=== PATIENT | female | born 1980 | race Caucasian/White ===

== ENCOUNTER 2018-01-20 02:12 | Inpatient (IN) | payer BC ==
[~2018-01-20] VITALS: Ht 172.7 cm; Wt 60.9 kg
[2018-01-20] MEDS ORDERED: OXYTOCIN 30U/ 0.9% NaCL 500ML 500 ML IV ONE (02:14)
[2018-01-20] MEDS: D5%-LACTATED RINGERS 1,000 ML IV SCH ×2 (02:14→10:14)
[2018-01-20] MEDS: LACTATED RINGERS 1,000 ML IV SCH ×2 (02:14→10:14)
[2018-01-20 02:15] VITALS: BP 126/74
[2018-01-20] MEDS ORDERED: FENTANYL PF 100 MCG/2ML ONE (02:19)
[2018-01-20] MEDS ORDERED: NEWBORN KIT ONE (02:20)
[2018-01-20] MEDS ORDERED: LIDOCAINE/PF 1%, 30ML ONE (02:20)
[2018-01-20] MEDS ORDERED: OXYTOCIN 30U/ 0.9% NaCL 500ML 500 ML ONE ×2 (02:20→03:00)
[2018-01-20] MEDS ORDERED: MISOPROSTOL 200 MCG TABLET ONE (02:20)
[2018-01-20] MEDS ORDERED: FENTANYL PF 100 MCG/2ML IVPush PRN (02:30)
[2018-01-20] MEDS ORDERED: CALCIUM CARBONATE 500 MG TAB.CHEW PO PRN ×2 (02:30→03:00)
[2018-01-20] MEDS ORDERED: TERBUTALINE 1 MG/ML, 1ML SQ PRN (02:30)
[2018-01-20] MEDS ORDERED: ALUMINUM/MAG/SIMETHICONE 30 ML UDC PO PRN (02:30)
[2018-01-20] MEDS ORDERED: TERBUTALINE 1 MG/ML, 1ML IVPush PRN ×2 (02:30)
[2018-01-20] MEDS ORDERED: FENTANYL PF 100 MCG/2ML IV PRN (02:30)
[2018-01-20] MEDS ORDERED: ONDANSETRON 2MG/ML, 2ML IVPush PRN (02:30)
[2018-01-20] MEDS: OXYTOCIN 30U/ 0.9% NaCL 500ML 500 ML IV SCH ×3 (02:41→22:55)
[2018-01-20] MEDS ORDERED: MAGNESIUM HYDROXIDE 8%, 30ML UDC PO PRN (03:00)
[2018-01-20] MEDS ORDERED: DIPH,PERTUSS(ACELL),TET VAC/PF NC IM-VACC PRN (03:00)
[2018-01-20] MEDS ORDERED: OXYcodone/APAP 5/325MG TABLET PO PRN ×2 (03:00)
[2018-01-20] MEDS ORDERED: MEASLES,MUMPS&RUBELLA VACC/PF 0.5 ML SQ PRN (03:00)
[2018-01-20] MEDS ORDERED: ONDANSETRON 2MG/ML, 2ML IV PRN (03:00)
[2018-01-20] MEDS ORDERED: MISOPROSTOL 200 MCG TABLET PR PRN (03:00)
[2018-01-20] MEDS ORDERED: ACETAMINOPHEN 325 MG TABLET PO PRN ×2 (03:00)
[2018-01-20 04:42] LABS: BASOPHILS # (AUTO) 0.01 x10^3/uL (0-0.1); BASOPHILS % (AUTO) 0 % (0-1); EOSINOPHILS # (AUTO) 0.01 x10^3/uL (0-0.4); EOSINOPHILS % (AUTO) 0 % (1-7); LYMPHOCYTES # (AUTO) 1.17 x10^3/uL (1-3.4); LYMPHOCYTES % (AUTO) 7 % (22-44); MD NO; MEAN CORPUSCULAR HEMOGLOBIN 33.8 pg (27.0-34.8); MEAN CORPUSCULAR HGB CONC 34.3 g/dL (32.4-35.8); MEAN CORPUSCULAR VOLUME 98.5 fL (80-100); MEAN PLATELET VOLUME 10.1 fL (7.4-10.4); MONOCYTES # (AUTO) 0.52 x10^3/uL (0.2-0.8); MONOCYTES % (AUTO) 3 % (2-9); NEUTROPHILS # (AUTO) 15.93 x10^3/uL (1.8-6.8); NEUTROPHILS % (AUTO) 90 % (42-75); PLATELET COUNT 145 x10^3/uL (130-400); RED BLOOD COUNT 3.81 x10^6/uL (3.82-5.3); RED CELL DISTRIBUTION WIDTH 12.2 % (9.6-15.2)
[2018-01-20 04:50] VITALS: BP 93/56
[2018-01-20 07:45] VITALS: BP 99/59
[2018-01-20] MEDS: DOCUSATE 100 MG CAPSULE PO PRN ×2 (08:28→20:22)
[2018-01-20] MEDS: PRENATAL VIT/IRON/FA 1 EACH TABLET PO SCH (08:28)
[2018-01-20 10:54] LABS: BASOPHILS # (AUTO) 0.05 x10^3/uL (0-0.1); BASOPHILS % (AUTO) 0 % (0-1); EOSINOPHILS # (AUTO) 0.02 x10^3/uL (0-0.4); EOSINOPHILS % (AUTO) 0 % (1-7); LYMPHOCYTES % (AUTO) 13 % (22-44); MD NO; MEAN CORPUSCULAR HEMOGLOBIN 34.5 pg (27.0-34.8); MEAN CORPUSCULAR HGB CONC 34.9 g/dL (32.4-35.8); MEAN CORPUSCULAR VOLUME 98.8 fL (80-100); MEAN PLATELET VOLUME 9.7 fL (7.4-10.4); MONOCYTES # (AUTO) 0.69 x10^3/uL (0.2-0.8); MONOCYTES % (AUTO) 5 % (2-9); NEUTROPHILS # (AUTO) 11.75 x10^3/uL (1.8-6.8); NEUTROPHILS % (AUTO) 82 % (42-75); PLATELET COUNT 143 x10^3/uL (130-400); RED BLOOD COUNT 3.59 x10^6/uL (3.82-5.3); RED CELL DISTRIBUTION WIDTH 12.6 % (9.6-15.2)
[2018-01-20 12:00] VITALS: BP 93/62
[2018-01-20] MEDS: IBUPROFEN 600 MG TABLET PO PRN ×2 (12:35→18:17)
[2018-01-20 17:00] VITALS: BP 99/62
[2018-01-20 20:00] VITALS: BP 92/61
[2018-01-21 00:23] VITALS: BP 99/63
[2018-01-21 08:00] VITALS: BP 106/71
[2018-01-21] MEDS: OXYTOCIN 30U/ 0.9% NaCL 500ML 500 ML IV SCH (08:55)
[2018-01-21] MEDS: PRENATAL VIT/IRON/FA 1 EACH TABLET PO SCH (09:00)
[2018-01-21] MEDS ORDERED: IBUP-1222 PO (11:15)
== END 2018-01-21 12:00 | disposition home or self-care (01) | DRG 774 ==
LOC: LDOP 02:12 → LDIP 02:26 → 2NW 04:30
PROVIDERS: ADMIT Obstetrics & Gynecology; ATTEND Obstetrics & Gynecology
PROC: 10E0XZZ Delivery of Products of Conception, External Approach (ICD-10-PCS; principal; 2018-01-20)
PROC: 3E033VJ Introduction of Other Hormone into Peripheral Vein, Percutaneous Approach (ICD-10-PCS; 2018-01-20)
DX: O98.52 Other viral diseases complicating childbirth (principal); Z37.0 Single live birth; B00.9 Herpesviral infection, unspecified; Z3A.38 38 weeks gestation of pregnancy
CPT/HCPCS: 36415; 85025; 86850; 86900; J3010; J2590